=== PATIENT | male | born 1945 | race Caucasian/White ===

== ENCOUNTER → 2018-03-01 | Outpatient (CLI) | payer MEDICARE, BC ==
[2018-03-01 16:55] LABS: HCT 36.5 % (39.0-53.0); HGB 11.8 gm/dL (13.0-17.5); MCH 30.5 pg (25.0-35.0); MCHC 32.2 g/dL (31.0-37.0); MCV 94.5 fL (80.0-100.0); Mean Platelet Volume 8.6; Platelet Count 182 k/uL (150-450); RBC 3.87 m/uL (4.30-5.90); RDW 12.5 % (11.5-15.5); WBC 5.3 k/uL (3.8-10.6)
[2018-03-01 17:05] LABS: Anion Gap 8 mmol/L; Blood Urea Nitrogen 18 mg/dL (9-20); Carbon Dioxide 26 mmol/L (22-30); Chloride 107 mmol/L (98-107); Potassium 4.6 mmol/L (3.5-5.1); Sodium 141 mmol/L (137-145)
== END | disposition home or self-care (01) ==
LOC: LABPAT 16:35
PROVIDERS: ATTEND Internal Medicine Interventional Cardiology
DX: Z01.812 Encounter for preprocedural laboratory examination (principal); R94.39 Abnormal result of other cardiovascular function study
CPT/HCPCS: 36415; 80051; 82565; 84520; 85027

== ENCOUNTER 2018-03-08 09:29 | Day surgery (SDC) | payer MEDICARE, BC ==
[2018-03-02 13:29] VITALS: BMI 27.3
[~2018-03-08 09:29] MED LIST: ALPRAZolam 0.25 MG TAB PO PRN; ALPRAZolam 0.5 MG TAB PO PRN; ASPIRIN 325 MG TAB PO STA; ATORVASTATIN 80 MG TAB PO STA; NITROGLYCERIN SL TABS 0.4 MG TAB SUBLINGUAL PRN; SODIUM CHLORIDE 0.9% 1,000 ML in EMPTY BAG 1 BAG IV ONE
[2018-03-08 09:54] VITALS: PULSE 89; TEMP 97.9
[2018-03-08] MEDS ORDERED: diphenhydrAMINE 50 MG/ML 1 ML VIAL ONE (12:48)
[2018-03-08] MEDS ORDERED: MIDAZOLAM 2 MG/2 ML VIAL ONE (12:48)
[2018-03-08] MEDS ORDERED: LIDOCAINE 1% INJ 10MG/ML (20 ML MDV) ONE (12:48)
[2018-03-08] MEDS ORDERED: VERAPAMIL 2.5 MG/ML 2 ML AMP ONE (12:50)
[2018-03-08] MEDS ORDERED: LIDOCAINE 1% INJ 10MG/ML (20 ML MDV) SQ ONE (12:57)
[2018-03-08] MEDS ORDERED: MIDAZOLAM 2 MG/2 ML VIAL IVP ONE (12:58)
[2018-03-08] MEDS ORDERED: diphenhydrAMINE 50 MG/ML 1 ML VIAL IVP ONE (12:58)
[2018-03-08] MEDS ORDERED: HEPARIN SODIUM 1,000 UN/ML (10ML VL) IVPB ONE (13:05)
[2018-03-08] MEDS: VERAPAMIL SYRINGE (5 MG/10 ML) INTRAARTER ONE ×2 (13:05→13:16)
[2018-03-08] MEDS ORDERED: IOPAMIDOL-370 100ML BTL INJ ONE (13:13)
[2018-03-08] MEDS ORDERED: RX INFO: IV CONTRAST WAS GIVEN 1 EACH MISC MISCELLANE PRN (14:47)
[2018-03-08] MEDS ORDERED: SODIUM CHLORIDE 0.9% 1,000 ML IV SCH (15:00)
[2018-03-08 16:37] VITALS: RESP 20
[2018-03-08 18:32] VITALS: BP 120/68
--- NOTE | 2018-03-08 19:02 | CC ---
CARDIAC CATHETERIZATION REPORT DATE OF SERVICE: 03/08/2018 PROCEDURE: Left heart catheterization, coronary angiography and left ventriculography. PERFORMED BY: Dr. Kimberly Richardson Moderate conscious sedation time was 22 minutes. Patient was administered Versed and Benadryl. His oxygen saturation, hemodynamics and EKG were monitored closely. CLINICAL INFORMATION: Mr. Vidal Cornelius is a 72-year-old gentleman with a recent history of exertional shortness of breath. He had a stress echo performed at [facility] and study revealed anteroapical septal hypokinesia with somewhat of a flat blood pressure response. He was advised coronary angiography after evaluation in the office. Risks, benefits, options and rationale were explained to the patient and his in great detail. PROCEDURE NOTE: Under local anesthesia and strict aseptic precautions, a 6-Wolof introducer was placed in the right radial artery. Using an Ultimate 1 catheter, I performed selective coronary angiography of both coronary arteries. I then used a pigtail catheter to check LV pressures and performed an LV gram in 30-degree ETIENNE projection. Patient tolerated procedure well. The sheath was taken out and TR band applied as per protocol and patient was sent to the room in stable condition. CARDIAC CATHETERIZATION FINDINGS: 1. The left ventricular end-diastolic pressure was 22 mmHg without any gradient across the aortic valve. CORONARY ANGIOGRAPHY FINDINGS: 1. LEFT MAIN CORONARY ARTERY. This is a short patent disease-free vessel that bifurcates into LAD and circumflex. 2. LEFT ANTERIOR DESCENDING CORONARY ARTERY. This vessel is totally occluded and is a flush occlusion without much antegrade flow. There are 2 small branches that come off from the left main, and these could be very high diagonal branches which are small in caliber and distribution, but the LAD itself is totally occluded. I cannot even see a stump. 3. LEFT POSTERIOR CIRCUMFLEX CORONARY ARTERY. Technically a nondominant, good-caliber and good-distribution vessel that gives off a good-sized obtuse marginal that runs laterally, tortuous, supplies a fair amount of myocardium and has no significant disease. 4. RIGHT CORONARY ARTERY. Very large dominant vessel; has no significant disease in the proximal, mid and distal portion. Bifurcates into a large PLV and PDA, both of which supply a sizable amount of myocardium. 5. COLLATERAL CIRCULATION. There is a rich network of collaterals coming mostly from the right coronary artery and its PDA branch, opacifying the entire LAD, but LAD is seen as a string throughout, and it is best seen in the ETIENNE projection with injection of the RCA. LAD therefore is opacified by collaterals coming from the right coronary artery. 6. LEFT VENTRICULOGRAM. This was performed in 30-degree ETIENNE projection and revealed a left ventricle which is of normal size with mild mid antral wall hypokinesia and estimated ejection fraction of 50% to 55% by visual inspection. There was a lot of ventricular ectopy during the injection, making it somewhat difficult to interpret. The patient tolerated the procedure well without complication, and saturation of the fingers of the right hand was 96%. I expect the patient will be discharged later on today if he remains stable. 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 The dominant right coronary artery and nondominant circumflex are both widely patent without significant disease. Filling pressures are elevated and ejection fraction appears to be normal with very minimal mid anterior wall hypokinesia. RECOMMENDATIONS: I am recommending that we continue medical therapy for now, but I will review the images and talk to regarding possibility of surgery for this patient. Even though he has no major rest symptoms, it appears that he will benefit from revascularization, given the fact that the LAD territory is actually quite viable and functioning very well. For now we will pursue medical therapy and patient will be discharged later on today. I will see him in the office in the next one week. Thank you for your referral and please call for questions. MMODL / IJN: [id number] /
--- NOTE | 2018-03-08 19:05 | LTR ---
To: Dr. Bruce Boyer Re: Vidal Adryan (47) Dear Dr. Boyer, Thank you for the opportunity to participate in the care of Mr. Jaren Cornelius. Please find enclosed my detailed cardiac cath report for your records. We will pursue medical therapy for now, but I will speak to Dr. a single graft to the LAD, possibly a BRAUN. However, I will keep you posted. Thank you for your referral. Please call with questions. Sincerely yours, Kimberly NAVARRO / BASILIO: [id number] /
== END 2018-03-08 18:05 | disposition home or self-care (01) ==
LOC: CATHCVL 09:29
PROVIDERS: ATTEND Internal Medicine Interventional Cardiology
DX: I25.110 Atherosclerotic heart disease of native coronary artery with unstable angina pectoris (principal); I25.82 Chronic total occlusion of coronary artery; I77.1 Stricture of artery; Z82.49 Family history of ischemic heart disease and other diseases of the circulatory system; Z88.0 Allergy status to penicillin
CPT/HCPCS: 93458; C1769; C1894; J2250; J1200; J2001; J1644; Q9967

== ENCOUNTER → 2022-01-30 | Outpatient (CLI) | payer MEDICARE, BC ==
--- NOTE | 2022-01-30 11:17 | P.SLEEP ---
History of Present Illness DATE: 01/30/2022 CONSULTATION/NEW PATIENT EVALUATION 76year old gentleman had been evaluated in the sleep center for obstructive s leep apnea hypopnea syndrome. HISTORY OF PRESENT ILLNESS/SLEEP-WAKE EVALUATION: Patient has history of obstructive sleep apnea hypopnea syndrome for about 10 years last time I saw patient in July 2016. Patient continue to use his CPAP equipment every night for the whole night. Presently CPAP unit became very noisy, does not work properly. SLEEP SCHEDULE: Usually sleep schedule from 10:30 PM to 7:30 AM. FALLING ASLEEP: No problems with falling asleep DURING SLEEP: While patient is using his CPAP equipment no snoring. She wakes up from sleep once to use the restroom. No history of hypnogogical hallucinations, sleep paralysis, or cataplexy. DURING THE DAY/WAKE STATE: During the day patient may take 1 nap around 2 PM. [place] sleepiness scale is 5 which is normal.[]. PAST MEDICAL HISTORY: Coronary artery disease. PAST SURGICAL HISTORY: Status post stent insertion to coronary artery in 2018, status post nasal surgery, status post tonsillectomy. MEDICATIONS: Tamsulosin, atorvastatin SOCIAL HISTORY: Negative for smoking or using alcohol . FAMILY HISTORY: Hypertension, cancer, diabetes, thyroid problems. REVIEW OF SYSTEMS: He awakenings from sleep with nocturia 1 No fevers. No double vision. No recent chest pain. No shortness of breath. No abdominal pain. No bleeding episodes. No blood in urine. No seizure episodes. PHYSICAL EXAMINATION: GENERAL: A pleasant patient without any distress. VITAL SIGNS: BP 156/87, HR 63, RR 12, weight 197.2 pounds, height 5 foot 8 inches, body mass index 30. HEENT: PERRLA, EOMI. Evaluation of oropharynx showed tongue protrudes midline, low position of soft palate. NECK: Supple. No JVD. Thyroid is not palpable. Neck is 17.25 inches in circumference.[] LUNGS: Clear to percussion and to auscultation. Good air exchange. No wheezing or rhonchi. HEART: S1, S2 regular. No murmurs, gallops or rubs. ABDOMEN: Soft and nontender. Bowel sounds are present. No organomegaly appreciated. EXTREMITIES: No clubbing or cyanosis. LIVESTOCK NUTRITION TERRITORY MANAGER: Awake, alert, and oriented x3. Cranial nerves 2 to 7 intact. There is no fasciculation or atrophy noted. No focal deficits observed. ASSESSMENT: 1. Obstructive sleep apnea hypopnea syndrome for about 10 years. Patient continue to use his CPAP equipment. CPAP unit needs to be replaced. 2. Coronary artery disease, status post stent insertion. 3 status post nasal surgery. 4. Status post tonsillectomy. 5 mild obesity body mass index 30. PLAN: 1. Prescription was written to replace CPAP unit. It will be replaced with AutoPap unit range of the pressure 6-11 cm of water. 2. Patient will continue to use CPAP therapy every night for the whole night. 3. Follow-up visit in the 30-90 days after patient will receive new Pap unit. To evaluate compliance with treatment, clinical response on treatment and make any necessary adjustments. 4. No driving if patient feels any sleepiness. Patient is aware of civil and criminal liability for unsafe driving. 5. Sleep hygiene with regular sleep time for at least 7.5-8 hours. 6. Watching weight. Sincerely, Grupo Rose MD, PhD, FAASM. Diplomat of [place] [employer], Sleep Medicine Board by [place] [employer] [place] [employer] [facility] Ho[facility] [place] Medications and Allergies Home Medications Medication Instructions Recorded Confirmed Type Aspirin [Adult Low Dose Aspirin EC] 81 mg PO DAILY 03/02/18 03/08/18 History Metoprolol Tartrate [Lopressor] 12.5 mg PO BID 03/08/18 03/08/18 History Tamsulosin HCl [Flomax] 0.4 mg PO DAILY 03/08/18 03/08/18 History Allergies Allergy/AdvReac Type Severity Reaction Status Date / Time Penicillins Allergy Swelling Verified 03/08/18 09:42 Sleep Note - Sleep Note Sleep Note: Temperature: Pulse Rate: Respiratory Rate: Blood Pressure: SpO2: Height: Weight: BMI: Neck Circumference:
== END ==
LOC: SLEEP 10:20
PROVIDERS: ATTEND Internal Medicine
DX: G47.33 Obstructive sleep apnea (adult) (pediatric) (principal); Z99.89 Dependence on other enabling machines and devices; I25.10 Atherosclerotic heart disease of native coronary artery without angina pectoris; Z95.5 Presence of coronary angioplasty implant and graft; Z90.09 Acquired absence of other part of head and neck; E66.9 Obesity, unspecified; Z68.30 Body mass index [BMI] 30.0-30.9, adult; Z79.82 Long term (current) use of aspirin; Z79.899 Other long term (current) drug therapy; Z88.0 Allergy status to penicillin
CPT/HCPCS: 99202

== ENCOUNTER → 2022-04-03 | Outpatient (CLI) | payer MEDICARE, BC ==
--- NOTE | 2022-04-03 12:30 | P.PN ---
Subjective DATE: 04/03/2022 FOLLOW UP VISIT. Patient with obstructive sleep apnea hypopnea syndrome return to sleep center for follow-up visit. Recently patient received new CPAP unit. Patient was able to use PAP equipment every night for the whole night. The patient does not have significant problems with the mask, PAP pressure and humidification. [place] sleepiness scale is 4. I checked information from PAP unit. PAP unit pressure 6-11, average 9.5 cm H2O. Usage is 100 % for more then 4 hours, average 9 hours per night. Leak is 4.0 l/m, which is in acceptable range. Apnea Hypopnea Index is 5, which is normal. MEDICATIONS:1. Atorvastatin 2. Tamsulosin During physical exam: GENERAL: A pleasant patient without any distress. VITAL SIGNS: BP 139/81, HR 58, RR 16 , weight 193, temperature 97.8, oxygen saturation at room air 99 . HEENT: PERRLA, EOMI.low position of soft palate, NECK: Supple. No JVD. LUNGS: Clear to percussion and to auscultation. Good air exchange. No wheezing or rhonchi. HEART: S1, S2 regular. ABDOMEN: Soft and nontender.[] EXTREMITIES: No clubbing or cyanosis. MULTIMEDIA ASSISTANT: Awake, alert, and oriented x3. No focal deficit. Impressions: 1. Obstructive sleep apnea-hypopnea syndrome. Patient demonstrated great compliance with treatment, benefiting from treatment. 2. Coronary artery disease, status post stent insertion. 3. Status post nasal surgery. 4. Status post tonsillectomy. Plan: 1. Continue using PAP equipment every night for the whole night. 2. To change air filter at least 1-2 times per month. 3. PAP unit should stay lower then position of the head. 4. Advised patient to remove all remaining water from humidifier canister daily and make it dry after each usage. Refill canister with fresh distilled water before each usage. 5. Sleep hygiene with regular time in bed for at least 8 hours. 6. Precautions related to driving. No driving if feel any sleepiness. 7. I will maintain prescription for PAP supplies including mask, tube, filters. 8. Follow up visit in 6 months or earlier if patient has any problems. 9. Watching weight. Thank you very much for allowing me to participate in the management of your patient. Grupo Rose MD, PhD, FAASM. Diplomat of [place] [employer], Sleep Medicine Board by [place] [employer] Lieutenant General of [facility] [place]
== END ==
LOC: SLEEP 10:03
PROVIDERS: ATTEND Internal Medicine
DX: G47.33 Obstructive sleep apnea (adult) (pediatric) (principal); I25.10 Atherosclerotic heart disease of native coronary artery without angina pectoris; Z90.09 Acquired absence of other part of head and neck; Z95.5 Presence of coronary angioplasty implant and graft; Z98.890 Other specified postprocedural states; Z99.89 Dependence on other enabling machines and devices; Z88.0 Allergy status to penicillin
CPT/HCPCS: 99212

== ENCOUNTER → 2022-12-18 | Outpatient (CLI) | payer MEDICARE, BC ==
--- NOTE | 2022-12-18 16:40 | P.PN ---
Subjective DATE: 12/18/2022 FOLLOW UP VISIT. Patient with obstructive sleep apnea hypopnea syndrome return to sleep center for follow-up visit. Information from previous visit have been reviewed. Patient is using PAP equipment every night for the whole night, getting PAP supplies in time. The patient does not have significant problems with the mask, PAP unit and humidification. [place] sleepiness scale is 4, which is normal. I checked information from PAP unit and discussed it with patient in details. PAP unit pressure 6-11, average 8.5 cm H2O. Usage is 100 % for more then 4 hours, average 8.5 hours per night. Leak is 19.4 l/m, which is in acceptable range. Apnea Hypopnea Index is 2.6, which is normal. MEDICATIONS:1. Atorvastatin 2. Flomax During physical exam: GENERAL: A pleasant patient without any distress. VITAL SIGNS: BP 126/74, HR 65, RR 12 , weight 198.2, temperature 97.6, oxygen saturation at room air 96 % . HEENT: PERRLA, EOMI.low position of soft palate, Mallapati 3 . NECK: Supple. No JVD. LUNGS: Clear to percussion and to auscultation. Good air exchange. No wheezing or rhonchi. HEART: S1, S2 regular. ABDOMEN: Soft and nontender.[] EXTREMITIES: No clubbing or cyanosis. SAFETY AND OCCUPATIONAL HEALTH MANAGER: Awake, alert, and oriented x3. No focal deficit. Impressions: 1. Obstructive sleep apnea-hypopnea syndrome. Patient demonstrated great compliance with treatment, benefiting from treatment. 2. , Nightly disease status post stent insertion. 3. Status post tonsillectomy. 4. Status post nasal surgery. 5. Mild obesity body mass index 30.3, patient increased his weight on 5 pounds comparing with previous visit. Plan: 1. Continue using PAP equipment every night for the whole night. 2. To change air filter at least 1-2 times per month. 3. PAP unit should stay lower then position of the head. 4. Advised patient to remove all remaining water from humidifier canister daily and make it dry after each usage. Refill canister with fresh distilled water before each usage. 5. Sleep hygiene with regular time in bed for at least 8 hours. 6. Precautions related to driving. No driving if feel any sleepiness. 7. I will maintain prescription for PAP supplies including mask, tube, filters. 8. Watching and losing weight. 9. Follow up visit in 6 months or earlier if patient has any problems. Thank you very much for allowing me to participate in the management of your patient. Grupo Rose MD, PhD, FAASM. Diplomat of [place] [employer], Sleep Medicine Board by [place] [employer] [facility] [place]
== END ==
LOC: SLEEP 15:26
PROVIDERS: ATTEND Internal Medicine
DX: G47.33 Obstructive sleep apnea (adult) (pediatric) (principal); Z98.890 Other specified postprocedural states; E66.9 Obesity, unspecified; Z68.30 Body mass index [BMI] 30.0-30.9, adult; Z99.89 Dependence on other enabling machines and devices; Z88.0 Allergy status to penicillin
CPT/HCPCS: 99212

== ENCOUNTER → 2024-04-07 | Outpatient (CLI) | payer MEDICARE, BC ==
[2024-04-07 16:17] VITALS: BP 123/69; PULSE 66; RESP 16; TEMP 97.7
--- NOTE | 2024-04-07 18:37 | P.PROGSL ---
Subjective DATE: 04/07/2024 FOLLOW UP VISIT. Patient with obstructive sleep apnea hypopnea syndrome return to sleep center for follow-up visit. Information from previous visit have been reviewed. Patient is using PAP equipment every night for the whole night, getting PAP supplies in time. The patient does not have significant problems with the mask, PAP unit and humidification. [place] sleepiness scale is 5, which is normal. I checked information from PAP unit. PAP unit pressure 6-11, average 7.9 cm H2O. Usage is 100% for more then 4 hours, average 8.75 hours per night. Leak is increased to 30.8 l/m. Apnea Hypopnea Index is 2.6, which is normal. MEDICATIONS have been reviewed, please see below. During physical exam: GENERAL: A pleasant patient without any distress. VITAL SIGNS: Please see below, weight is 195.8 lbs. HEENT: PERRLA, EOMI.low position of soft palate, Mallapati 3. NECK: Supple. No JVD. LUNGS: Clear to percussion and to auscultation. Good air exchange. No wheezing or rhonchi. HEART: S1, S2 regular. ABDOMEN: Soft and nontender.[] EXTREMITIES: No clubbing or cyanosis. RISK CONTROL PRODUCT LIABILITY DIRECTOR: Awake, alert, and oriented x3. No focal deficit. Impressions: 1. Obstructive sleep apnea-hypopnea syndrome. Patient demonstrated great compliance with treatment, benefiting from treatment. 2. Mild obesity, BMI 30.5. 3. Coronary artery disease, status post stent insertion. 4. Hyperlipidemia. 5. Hypertension. 6. BPH. 7. Status post tonsillectomy. 8. Status post nasal surgery. Plan: 1. Continue using PAP equipment every night for the whole night. 2. Sleep hygiene with regular time in bed for at least 7.5-8 hours 3. PAP unit should stay lower then position of the head. 4. Advised patient to remove all remaining water from humidifier canister daily and make it dry after each usage. Refill canister with fresh distilled water before each usage. 5. Watching weight. 6. Precautions related to driving. No driving if feel any sleepiness. 7. I will maintain prescription for PAP supplies including mask, tube, filters. 8. Follow up visit in 6 months or earlier if patient has any problems. Thank you very much for allowing me to participate in the management of your patient. Grupo Rose MD, PhD, FAASM. Diplomat of [place] [employer], Sleep Medicine Board by [place] [employer] [place] Objective - Vital Signs Vital Signs: Vital Signs Temp 97.7 F 04/07/24 16:16 Pulse 66 04/07/24 16:16 Resp 16 04/07/24 16:16 BP 123/69 04/07/24 16:16 Pulse Ox 97 04/07/24 16:16 FiO2 Intake & Output 04/06/24 04/07/24 04/07/24 18:59 06:59 18:59 Weight 88.451 kg Home Medications: Home Medications Medication Instructions Recorded Confirmed Type Aspirin [Adult Low Dose Aspirin EC] 81 mg PO DAILY 03/02/18 03/08/18 History Metoprolol Tartrate [Lopressor] 12.5 mg PO BID 03/08/18 04/07/24 History Tamsulosin HCl [Flomax] 0.4 mg PO DAILY 03/08/18 04/07/24 History Atorvastatin [Lipitor] 20 mg PO DAILY 04/07/24 04/07/24 History
== END ==
LOC: 3 N SLEEP 16:00
PROVIDERS: ATTEND Internal Medicine
CPT/HCPCS: 99212